=== PATIENT | male | born 1995 | race African-American/Black ===

== ENCOUNTER 2017-11-29 22:39 | Emergency (ER) ==
[2017-11-29 22:43] VITALS: BP 120/68; TEMP 98; BMI 21.4
[2017-11-29] MEDS ORDERED: LIDOCAINE 2% 20 ML MDV INJ STA (22:44)
[2017-11-29] MEDS ORDERED: LIDOCAINE HCL 1% SDV ONE (22:46)
--- NOTE | 2017-11-29 23:20 | ED.PDOC ---
General ED Provider: Dr. URSULA LEE Chief Complaint: Face Laceration Stated Complaint: Patient state he got injured while playing basketball sustaining a laceration to the corner of the left eye with some bleeding. Time Seen by Physician: 22:50 Mode of Arrival: Walk-In Information Source: Patient Exam Limitations: No limitations Nursing and Triage Documentation Reviewed and Agree: Yes Reviewed sepsis parameters & appropriate labs ordered?: No System Inflammatory Response Syndrome: Not Applicable Sepsis Protocol: For patient's 13 years and over: Temp is 96.8 and below OR 101 and greater Pulse >90 BPM Resp >20/minute Acutely Altered Mental Status Are patient's symptoms suggestive of a new infection, such as: -Pneumonia -Skin, Soft Tissue -Endocarditis -UTI -Bone, Joint Infection -Implantable Device -Acute Abdominal Infection -Wound Infection -Meningitis -Blood Stream Catheter Infection -Unknown System Inflammatory Response Syndrome: Not Applicable Skin Complaint Exam - Laceration/Head/Facial Complaint/Exam Location of Injury: Other (Left lateral periorbital EDEMA) Mechanism of Injury: Laceration Onset/Duration: 1 hour Symptoms Are: Still present Initial Severity: Moderate Current Severity: Mild Aggravating: Movement Alleviating: Compression Associated Signs and Symptoms: Denies: Fever, Chills, Erythema, Numbness, Tingling Head Picture: 1 - 2 cm irregular laceration Differential Diagnoses: Laceration Review of Systems - Review Of Systems Constitutional: Reports: No symptoms Eyes: Reports: No symptoms Ears, Nose, Mouth, Throat: Reports: No symptoms Respiratory: Reports: No symptoms Cardiac: Reports: No symptoms GI: Reports: No symptoms : Reports: No symptoms Musculoskeletal: Reports: No symptoms Skin: Reports: Other (Laceration) Neurological: Reports: No symptoms Endocrine: Reports: No symptoms Hematologic/Lymphatic: Reports: No symptoms All Other Systems: Reviewed and Negative Past Medical History - Past Medical History Previously Healthy: Yes Endocrine: Reports: None Cardiovascular: Reports: None Respiratory: Reports: None Hematological: Reports: None Gastrointestinal: Reports: None Genitourinary: Reports: None Neuro/Psych: Reports: None Musculoskeletal: Reports: None Cancer: Reports: None - Surgical History General Surgical History: Reports: None - Family History Family History: Reports: None - Social History Smoking Status: Never smoker Hx Substance Use: No Alcohol Screening: None - Immunizations Tetanus Shot up to Date: Yes Physical Exam - Physical Exam Appearance: Ill-appearing, Well-nourished Ill-appearing: Mild Pain Distress: Mild Eyes: CHELSIE, EOMI, Conjunctiva clear ENT: Ears normal, Nose normal, Oropharynx normal Neck: Supple Respiratory: Airway patent, Breath sounds clear, Breath sounds equal, Respirations nonlabored Cardiovascular: RRR, Pulses normal, No rub, No murmur GI/: Soft, Nontender, No masses, Bowel sounds normal, No Organomegaly Musculoskeletal: Normal strength, ROM intact, No edema, No calf tenderness Skin: Warm, Dry, Normal color Neurological: Sensation intact, Motor intact, Reflexes intact, Cranial nerves intact, Alert, Oriented Psychiatric: Anxious Procedures - Laceration/Wound Repair Left periorbital laceration Wound Description: Linear Wound Length (cm): 2 cm Wound Width: 0.5 Wound Depth: 0.1 Wound Explored: Clean Wound Irrigated: No Wound Prep: Hibiclens Anesthesia: Lidocaine Wound Margins: Flaps aligned Wound Repaired With: Sutures Suture Size and Type: 5.0 Ethlone Number of Sutures: 8 (Running ) Layer Closure?: No Sterile Dressing Applied?: Yes Splint Applied?: No Sling Applied?: No Critical Care Note - Critical Care Note Total Time (mins): 0 Course - Course Orders, Labs, Meds: Orders Category Date Time Status Lidocaine HCl Inj [Lidocaine 2% 20 ml Mdv] MEDS 11/29/17 22:44 Discontinued 1 ml INJ ONCE STA Lidocaine HCl/Pf [Lidocaine HCl 1% Sdv] MEDS 11/29/17 22:46 Discontinued 5 ml .ROUTE .STK-MED ONE Medications Discontinued Medications Generic Name Dose Route Start Last Admin Trade Name Freq PRN Reason Stop Dose Admin Lidocaine HCl 1 ml 11/29/17 22:44 11/29/17 23:07 Lidocaine 2% 20 Ml Mdv INJ 11/29/17 22:45 Not Given ONCE STA Vital Signs: Temp Pulse Resp BP Pulse Ox 11/29/17 22:40 98 F 72 14 120/68 98 Departure - Departure Time of Disposition: 23:25 Disposition: HOME SELF-CARE Discharge Problem: Facial laceration Instructions: Facial Laceration (ED) Condition: Stable Pt referred to PMD for follow-up: Yes IPMP verified?: No Additional Instructions: Have your sutures removed in 7-10 days Return if worse. Allergies/Adverse Reactions: Allergies No Known Allergies Allergy (Unverified 11/29/17 22:43) Home Medications: Ambulatory Orders 1 [No Reported Medications] 11/29/17 Disposition Discussed With: Patient
== END 2017-11-29 23:30 | disposition home or self-care (01) ==
LOC: ED 22:39
DX: S01.112A Laceration without foreign body of left eyelid and periocular area, initial encounter (principal)
CPT/HCPCS: 96372; 99283